=== PATIENT | female | born 1945 | race Caucasian/White ===

== ENCOUNTER → 2017-09-03 | Outpatient (CLI) | payer MEDICARE, OTHER ==
--- NOTE | 2017-09-03 14:55 | MM ---
Reason for exam: clinical finding. Baseline mammogram. Physical Findings: Nurse did not find any significant physical abnormalities on exam. MG 3D Diag Mammo W/Cad VINAY Bilateral CC and MLO view(s) were taken. There are scattered fibroglandular densities. There is no discrete abnormality within the breast. Vague soft tissue wound left inferior breast. Skin tag left inferior breast. These results were verbally communicated with the patient and result sheet given to the patient on 09/03/17. ASSESSMENT: Benign, BI-RAD 2 RECOMMENDATION: Routine screening mammogram of both breasts in 1 year.
== END | disposition home or self-care (01) ==
LOC: RADMAMWWP 12:49
PROVIDERS: ATTEND Family Medicine
DX: R92.8 Other abnormal and inconclusive findings on diagnostic imaging of breast (principal)
CPT/HCPCS: 77066; G0279

== ENCOUNTER 2019-10-06 12:09 | Emergency (ER) | payer MEDICARE, OTHER ==
[2019-10-06 12:21] LABS: Glucose,Whole Blood 106 mg/dL (75-99)
[2019-10-06 12:33] VITALS: RESP 18
[2019-10-06] MEDS ORDERED: LABETALOL 5 MG/ML VIAL MDV IVP STA (12:37)
--- NOTE | 2019-10-06 12:38 | ED ---
General Adult HPI - General Chief complaint: Recheck/Abnormal Lab/Rx Stated complaint: High blood pressure/abn EKG Time Seen by Provider: 10/06/19 12:17 Source: patient Mode of arrival: wheelchair Limitations: no limitations - History of Present Illness Initial comments: Dictation was produced using [employer] dictation software. please excuse any gram matical, word or spelling errors. Chief Complaint: 74-year-old female presents with lower extremity weakness and elevated blood pressure. History of Present Illness: 74-year-old female she is here today emergency department after instruction by physician to come to the emergency department. Patient has been generally weak. She is accompanied by family members. Starting yesterday morning patient has been having lower extremity weakness. It's been difficult for her to ambulate. Patient denies any numbness or tingling or paresthesias however. This morning the strength in her left lower leg improved however she still has persistent right lower extremity weakness. Patient usually walks however is not able to adduct the moment. Patient denies any history of stroke. She does have history of hypertension and mitral valve prolapse. States that her symptoms began Friday morning. Denies any history of stroke. The ROS documented in this emergency department record has been reviewed and confirmed by me. Those systems with pertinent positive or negative responses have been documented in the HPI. All other systems are other negative and/or noncontributory. PHYSICAL EXAM: General Impression: Alert and oriented x3, not in acute distress HEENT: Normocephalic atraumatic, extra-ocular movements intact, pupils equal and reactive to light bilaterally, mucous membranes moist. Cardiovascular: Heart regular rate and rhythm, S1&S2 audible, no murmurs, rubs or gallops Chest: Lungs clear to auscultation bilaterally, no rhonchi, no wheeze, no rales Abdomen: Bowel sounds present, abdomen soft, non-tender, non-distended, no organomegaly Musculoskeletal: Pulses present and equal in all extremities, no peripheral edema Motor: no focal deficits noted Neurological: CN II-XII grossly intact, no facial droop, 1+ drift to the right upper extremity, 2+ drift to the right lower extremity. Inability to stand on right leg, right lower extremity ataxia Skin: Intact with no visualized rashes Psych: Normal affect and mood ED course: 74-year-old female presents with hypertension. She is instructed by primary care physician to come to the emergency department. Upon arrival óscar wynn had strokelike symptoms. Vital signs upon arrival shows blood pressure 229 and 141, rest of vital signs within acceptable limits. Patient given NIH of 4. Patient outside the TPA window. symptoms are approximately 48 hours since onset Laboratory evaluation obtained. CBC, coag panel, metabolic panel is unremarkable. There is slight elevation of troponin 0.02. Computed tomography scan of the brain is unremarkable. Chest x-ray is nonacute. Patient given aspirin. She is reevaluated bedside complains of persistent symptoms. We do not have neurology in her hospital today. We'll transfer to [facility]. Discussed patient case with Dr. Sethi does want to accept his care. She given labetalol 4 systolic blood pressure of 229/141. EKG interpretation: Ventricular rate 71, normal sinus rhythm,. 188, QRS 90, QTC 471. No MI prolongation, no QTC prolongation, no ST or T-wave changes noted. . Overall, this EKG is unremarkable - Related Data Previous Rx's Medication Instructions Recorded Ondansetron [Zofran] 4 mg PO Q8HR PRN #15 tab 02/06/14 Allergies Allergy/AdvReac Type Severity Reaction Status Date / Time Sulfa (Sulfonamide Allergy Anaphylaxis Verified 10/06/19 12:14 Antibiotics) Review of Systems ROS Statement: Those systems with pertinent positive or pertinent negative responses have been documented in the HPI. ROS Other: All systems not noted in ROS Statement are negative. Past Medical History Past Medical History: Hypertension, Mitral Valve Prolapse (MVP) History of Any Multi-Drug Resistant Organisms: None Reported Past Surgical History: Cholecystectomy, Hysterectomy Past Psychological History: No Psychological Hx Reported Smoking Status: Never smoker Past Alcohol Use History: None Reported Past Drug Use History: None Reported General Exam Limitations: no limitations Course Vital Signs 10/06/19 10/06/19 10/06/19 12:11 12:31 13:43 Temperature 97.8 F 98.4 F Pulse Rate 76 70 64 Respiratory 20 18 Rate Blood Pressure 215/117 229/141 191/104 O2 Sat by Pulse 96 96 Oximetry Medical Decision Making - Lab Data Result diagrams: 10/06/19 12:28 10/06/19 12:28 Lab Results 10/06/19 10/06/19 10/06/19 Range/Units 12:20 12:28 12:28 WBC 8.6 (3.8-10.6) k/uL RBC 5.02 (3.80-5.40) m/uL Hgb 15.6 (11.4-16.0) gm/dL Hct 46.6 H (34.0-46.0) % MCV 93.0 (80.0-100.0) fL MCH 31.0 (25.0-35.0) pg MCHC 33.4 (31.0-37.0) g/dL RDW 12.0 (11.5-15.5) % Plt Count 326 (150-450) k/uL Neutrophils % 60 % Lymphocytes % 30 % Monocytes % 5 % Eosinophils % 2 % Basophils % 1 % Neutrophils # 5.2 (1.3-7.7) k/uL Lymphocytes # 2.5 (1.0-4.8) k/uL Monocytes # 0.4 (0-1.0) k/uL Eosinophils # 0.2 (0-0.7) k/uL Basophils # 0.1 (0-0.2) k/uL PT (9.0-12.0) sec INR (<1.2) APTT (22.0-30.0) sec Sodium 140 (137-145) mmol/L Potassium 3.4 L (3.5-5.1) mmol/L Chloride 104 (98-107) mmol/L Carbon Dioxide 30 (22-30) mmol/L Anion Gap 6 mmol/L BUN 14 (7-17) mg/dL Creatinine 0.72 (0.52-1.04) mg/dL Est GFR (CKD-EPI)AfAm >90 (>60 ml/min/1.73 sqM) Est GFR (CKD-EPI)NonAf 85 (>60 ml/min/1.73 sqM) Glucose 108 H (74-99) mg/dL POC Glucose (mg/dL) 106 H (75-99) mg/dL POC Glu Asbestos Abatement Technician ID Eleni Price Calcium 9.4 (8.4-10.2) mg/dL Troponin I (0.000-0.034) ng/mL 10/06/19 10/06/19 Range/Units 12:28 12:28 WBC (3.8-10.6) k/uL RBC (3.80-5.40) m/uL Hgb (11.4-16.0) gm/dL Hct (34.0-46.0) % MCV (80.0-100.0) fL MCH (25.0-35.0) pg MCHC (31.0-37.0) g/dL RDW (11.5-15.5) % Plt Count (150-450) k/uL Neutrophils % % Lymphocytes % % Monocytes % % Eosinophils % % Basophils % % Neutrophils # (1.3-7.7) k/uL Lymphocytes # (1.0-4.8) k/uL Monocytes # (0-1.0) k/uL Eosinophils # (0-0.7) k/uL Basophils # (0-0.2) k/uL PT 9.9 (9.0-12.0) sec INR 0.9 (<1.2) APTT 22.9 (22.0-30.0) sec Sodium (137-145) mmol/L Potassium (3.5-5.1) mmol/L Chloride (98-107) mmol/L Carbon Dioxide (22-30) mmol/L Anion Gap mmol/L BUN (7-17) mg/dL Creatinine (0.52-1.04) mg/dL Est GFR (CKD-EPI)AfAm (>60 ml/min/1.73 sqM) Est GFR (CKD-EPI)NonAf (>60 ml/min/1.73 sqM) Glucose (74-99) mg/dL POC Glucose (mg/dL) (75-99) mg/dL POC Glu Asbestos Abatement Technician ID Calcium (8.4-10.2) mg/dL Troponin I 0.020 (0.000-0.034) ng/mL Disposition Clinical Impression: Cerebrovascular accident (CVA) Disposition: OTHER INSTITUTION NOT DEFINED Condition: Fair Referrals: Sherry Young DO [Primary Care Provider] - 1-2 days Time of Disposition: 13:48 - Out of Hospital Transfer - Req. Specs Out of Hospital Transfer - Requested Specifics: Other Emergency Center ([facility]
[2019-10-06 12:41] LABS: Basophils # (A) 0.1 k/uL (0-0.2); Basophils % (A) 1 %; Eosinophils # (A) 0.2 k/uL (0-0.7); Eosinophils % (A) 2 %; HCT 46.6 % (34.0-46.0); HGB 15.6 gm/dL (11.4-16.0); Lymphocytes # (A) 2.5 k/uL (1.0-4.8); Lymphocytes % (A) 30 %; MCHC 33.4 g/dL (31.0-37.0); Mean Platelet Volume 8.5; Monocytes # (A) 0.4 k/uL (0-1.0); Monocytes % (A) 5 %; Neutrophils # (A) 5.2 k/uL (1.3-7.7); Neutrophils % (A) 60 %; Platelet Count 326 k/uL (150-450); RBC 5.02 m/uL (3.80-5.40); WBC 8.6 k/uL (3.8-10.6)
[2019-10-06 12:49] LABS: INR 0.9 (<1.2); Partial Thromboplastin Time 22.9 sec (22.0-30.0); Prothrombin Time 9.9 sec (9.0-12.0)
[2019-10-06 12:51] LABS: African American GFR (CKD) >90 (>60 ml/min/1.73 sqM); Anion Gap 6 mmol/L; Blood Urea Nitrogen 14 mg/dL (7-17); Calcium 9.4 mg/dL (8.4-10.2); Carbon Dioxide 30 mmol/L (22-30); Chloride 104 mmol/L (98-107); Glucose 108 mg/dL (74-99); Non-African American GFR(CKD) 85 (>60 ml/min/1.73 sqM); Potassium 3.4 mmol/L (3.5-5.1); Sodium 140 mmol/L (137-145)
--- NOTE | 2019-10-06 12:58 | XR ---
EXAMINATION TYPE: XR chest 2V DATE OF EXAM: 10/06/2019 COMPARISON: NONE HISTORY: Shortness of breath TECHNIQUE: Frontal and lateral views of the chest are obtained. FINDINGS: Scattered senescent parenchymal changes noted. Hyperinflation compatible with COPD. No evidence for infiltrate. No evidence for atelectasis. Heart size is stable. Mediastinal structures are stable and grossly unremarkable. No evidence for hilar prominence. Degenerative changes dorsal spine. IMPRESSION: 1. No evidence for acute pulmonary disease.
--- NOTE | 2019-10-06 13:02 | CT ---
EXAMINATION TYPE: CT brain wo con DATE OF EXAM: 10/06/2019 COMPARISON: None INDICATION: High blood pressure, right sided weakness DLP: 1025.4 mGycm, Automated exposure control for dose reduction was used. CONTRAST: None CT of the brain is performed utilizing 3 mm thick sections through the posterior fossa and 3 mm thick sections through the remaining calvarium. Study is performed within 24 hours of arrival to the hosp ital. No abnormal hyperdensity is present to suggest an acute intracranial hemorrhage. No mass lesion is evident. No acute infarcts are evident. Ventricles and sulci are prominent for the patient age. Lateral ventricles are prominent. No tempora l horn dilatation is evident. Third ventricle somewhat prominent. Findings can be related to atrophy. Paranasal sinuses and mastoid air cells within the [id number] are clear. IMPRESSIONS: 1. Age-related atrophy. 2. No acute intracranial process radiographically apparent.
[2019-10-06] MEDS ORDERED: ASPIRIN 81 MG PO STA (13:27)
[2019-10-06 14:06] VITALS: BP 211/118; PULSE 65; TEMP 98.2
== END 2019-10-06 14:15 | disposition other institution (70) ==
LOC: EC 12:09
DX: I63.9 Cerebral infarction, unspecified (principal); I34.1 Nonrheumatic mitral (valve) prolapse; I10 Essential (primary) hypertension; R53.1 Weakness; R29.704 NIHSS score 4; R79.89 Other specified abnormal findings of blood chemistry; Z88.2 Allergy status to sulfonamides
CPT/HCPCS: 36415; 70450; 71046; 80048; 84484; 85025; 85610; 85730; 93005; 96374; 99285

== ENCOUNTER 2020-08-21 09:37 | Inpatient (IN) | payer MEDICARE, OTHER ==
[2020-08-21] MEDS ORDERED: SODIUM CHLORIDE 0.9% 1,000 ML IV STA (09:55)
[2020-08-21] MEDS ORDERED: ONDANSETRON 4 MG/2 ML VIAL IVP STA (09:55)
[2020-08-21] MEDS ORDERED: MORPHINE SULFATE 2 MG/ML SYRINGE IV STA (09:55)
--- NOTE | 2020-08-21 10:00 | ED ---
General Adult HPI - General Chief complaint: GI Bleed Stated complaint: NVD, blood in stool Time Seen by Provider: 08/21/20 09:48 Source: patient, RN notes reviewed Mode of arrival: wheelchair Limitations: no limitations - History of Present Illness Initial comments: Patient 75-year-old female presented to the emergency room today with chief complaint of symptoms of nausea, vomiting, diarrhea that started yesterday. She does admit that today after an episode of diarrhea she was point. some blood on the toilet paper also extensive the toilet. She states bright red color. She does admit that she is on aspirin also takes Plavix. Patient does admit to some cramping in the abdomen, and going. She states that 4 days ago she had a fall as well. She states that her leg gave out she fell backwards and her head. She did not lose conscious. She does admit that she's had some headaches. Denies any other complaints or symptoms currently. Patient denies any recent fever, chills, shortness of breath, chest pain, back pain, headaches or visual changes, or any other complaints. - Related Data Previous Rx's Medication Instructions Recorded Ondansetron [Zofran] 4 mg PO Q8HR PRN #15 tab 02/06/14 Allergies Allergy/AdvReac Type Severity Reaction Status Date / Time Sulfa (Sulfonamide Allergy Anaphylaxis Verified 08/21/20 09:47 Antibiotics) Review of Systems ROS Statement: Those systems with pertinent positive or pertinent negative responses have been documented in the HPI. ROS Other: All systems not noted in ROS Statement are negative. Past Medical History Past Medical History: CVA/TIA, Hyperlipidemia, Hypertension, Mitral Valve Prolapse (MVP) History of Any Multi-Drug Resistant Organisms: None Reported Past Surgical History: Cholecystectomy, Hysterectomy, Orthopedic Surgery Past Psychological History: No Psychological Hx Reported Smoking Status: Never smoker Past Alcohol Use History: None Reported Past Drug Use History: None Reported General Exam - General Exam Comments Initial Comments: General: The patient is awake and alert, in no distress, and does not appear acutely ill. Eye: extra-ocular movements are intact. No nystagmus. There is normal conjunctiva bilaterally. No signs of icterus. Ears, nose, mouth and throat: There are moist mucous membranes and no oral lesions. Neck: The neck is supple, there is no tenderness or JVD. Cardiovascular: There is a regular rate and rhythm. No murmur, rub or gallop is appreciated. Respiratory: Lungs are clear to auscultation, respirations are non-labored, breath sounds are equal. No wheezes, stridor, rales, or rhonchi. Gastrointestinal: Normal exam. Mild tenderness throughout the abdomen. No rebound, guarding or CVA tenderness. Musculoskeletal: Normal ROM, no tenderness. Strength 5/5. Sensation intact. Neurological: A&O x 3. CN II-XII intact, There are no obvious motor or sensory deficits. Coordination appears grossly intact. Speech is normal. Skin: Skin is warm and dry and no rashes or lesions are noted. Psychiatric: Cooperative, appropriate mood & affect, normal judgment. Limitations: no limitations Course Vital Signs 08/21/20 08/21/20 08/21/20 09:43 10:30 11:00 Temperature 98.8 F Pulse Rate 86 72 78 Respiratory 20 12 19 Rate Blood Pressure 139/100 139/93 149/91 O2 Sat by Pulse 96 96 96 Oximetry 08/21/20 08/21/20 11:30 11:50 Temperature Pulse Rate 73 78 Respiratory 17 16 Rate Blood Pressure 170/93 153/91 O2 Sat by Pulse 94 L Oximetry EKG Findings - EKG Comments: EKG Findings:: EKG performed at 1001: Shows normal sinus rhythm at [address] interval 192. QRS 94. QT/QTc 416/479. No acute change. Medical Decision Making - Medical Decision Making Patient's labs been reviewed are shortly 2000 white count. Patient's hemoglobin stable. She does not that she saw some blood in the stool this morning. Patient given Protonix in the emergency room also given doses of antibiotics of Rocephin, Flagyl to cover for infectious colitis as seen on patient's CT. There is concern for possible mass also visualized. Patient will be admitted with consult to general surgery. - Lab Data Result diagrams: 08/21/20 10:05 08/21/20 10:05 Lab Results 08/21/20 08/21/20 08/21/20 Range/Units 10:05 10:05 10:05 WBC 18.9 H (3.8-10.6) k/uL RBC 4.99 (3.80-5.40) m/uL Hgb 15.4 (11.4-16.0) gm/dL Hct 45.4 (34.0-46.0) % MCV 91.1 (80.0-100.0) fL MCH 30.9 (25.0-35.0) pg MCHC 33.9 (31.0-37.0) g/dL RDW 11.8 (11.5-15.5) % Plt Count 338 (150-450) k/uL MPV 7.7 Neutrophils % 84 % Lymphocytes % 10 % Monocytes % 4 % Eosinophils % 0 % Basophils % 1 % Neutrophils # 15.9 H (1.3-7.7) k/uL Lymphocytes # 1.9 (1.0-4.8) k/uL Monocytes # 0.7 (0-1.0) k/uL Eosinophils # 0.0 (0-0.7) k/uL Basophils # 0.1 (0-0.2) k/uL PT 10.2 (9.0-12.0) sec INR 0.9 (<1.2) APTT 21.5 L (22.0-30.0) sec Sodium 139 (137-145) mmol/L Potassium 3.5 (3.5-5.1) mmol/L Chloride 105 (98-107) mmol/L Carbon Dioxide 25 (22-30) mmol/L Anion Gap 9 mmol/L BUN 14 (7-17) mg/dL Creatinine 0.77 (0.52-1.04) mg/dL Est GFR (CKD-EPI)AfAm 89 (>60 ml/min/1.73 sqM) Est GFR (CKD-EPI)NonAf 77 (>60 ml/min/1.73 sqM) Glucose 135 H (74-99) mg/dL Calcium 9.9 (8.4-10.2) mg/dL Total Bilirubin 0.9 (0.2-1.3) mg/dL AST 20 (14-36) U/L ALT 12 (4-34) U/L Alkaline Phosphatase 139 H (38-126) U/L Troponin I (0.000-0.034) ng/mL Total Protein 7.0 (6.3-8.2) g/dL Albumin 3.9 (3.5-5.0) g/dL 08/21/20 Range/Units 10:05 WBC (3.8-10.6) k/uL RBC (3.80-5.40) m/uL Hgb (11.4-16.0) gm/dL Hct (34.0-46.0) % MCV (80.0-100.0) fL MCH (25.0-35.0) pg MCHC (31.0-37.0) g/dL RDW (11.5-15.5) % Plt Count (150-450) k/uL MPV Neutrophils % % Lymphocytes % % Monocytes % % Eosinophils % % Basophils % % Neutrophils # (1.3-7.7) k/uL Lymphocytes # (1.0-4.8) k/uL Monocytes # (0-1.0) k/uL Eosinophils # (0-0.7) k/uL Basophils # (0-0.2) k/uL PT (9.0-12.0) sec INR (<1.2) APTT (22.0-30.0) sec Sodium (137-145) mmol/L Potassium (3.5-5.1) mmol/L Chloride (98-107) mmol/L Carbon Dioxide (22-30) mmol/L Anion Gap mmol/L BUN (7-17) mg/dL Creatinine (0.52-1.04) mg/dL Est GFR (CKD-EPI)AfAm (>60 ml/min/1.73 sqM) Est GFR (CKD-EPI)NonAf (>60 ml/min/1.73 sqM) Glucose (74-99) mg/dL Calcium (8.4-10.2) mg/dL Total Bilirubin (0.2-1.3) mg/dL AST (14-36) U/L ALT (4-34) U/L Alkaline Phosphatase (38-126) U/L Troponin I 0.012 (0.000-0.034) ng/mL Total Protein (6.3-8.2) g/dL Albumin (3.5-5.0) g/dL Disposition Clinical Impression: Infectious colitis, Hematochezia Disposition: ADMITTED IP TO THIS [facility] Condition: Stable Is patient prescribed a controlled substance at d/c from ED?: No Referrals: Sherry Young DO [Primary Care Provider] - 1-2 days Time of Disposition: 11:53
[2020-08-21 10:34] LABS: Basophils # (A) 0.1 k/uL (0-0.2); Basophils % (A) 1 %; Eosinophils % (A) 0 %; HCT 45.4 % (34.0-46.0); HGB 15.4 gm/dL (11.4-16.0); Lymphocytes # (A) 1.9 k/uL (1.0-4.8); Lymphocytes % (A) 10 %; MCH 30.9 pg (25.0-35.0); MCHC 33.9 g/dL (31.0-37.0); MCV 91.1 fL (80.0-100.0); Mean Platelet Volume 7.7; Monocytes # (A) 0.7 k/uL (0-1.0); Monocytes % (A) 4 %; Neutrophils # (A) 15.9 k/uL (1.3-7.7); Neutrophils % (A) 84 %; Platelet Count 338 k/uL (150-450); RBC 4.99 m/uL (3.80-5.40); RDW 11.8 % (11.5-15.5); WBC 18.9 k/uL (3.8-10.6)
[2020-08-21 10:42] LABS: Albumin 3.9 g/dL (3.5-5.0); Calcium 9.9 mg/dL (8.4-10.2); Potassium 3.5 mmol/L (3.5-5.1); Total Bilirubin 0.9 mg/dL (0.2-1.3)
[2020-08-21 10:50] LABS: INR 0.9 (<1.2); Prothrombin Time 10.2 sec (9.0-12.0)
[2020-08-21 10:56] LABS: Partial Thromboplastin Time 21.5 sec (22.0-30.0)
--- NOTE | 2020-08-21 11:07 | CT ---
EXAMINATION TYPE: CT brain wo con DATE OF EXAM: 08/21/2020 HISTORY: fall injury with headache. CT DLP: 1098.4 mGycm. Automated Exposure Control for Dose Reduction was Utilized. TECHNIQUE: CT scan of the head is performed without contrast. COMPARISON: CT brain October 06, 2019. FINDINGS: There is no acute intracranial hemorrhage or midline shift identified. There is diffuse v entricular and sulcal prominence consistent with diffuse age-related cerebral atrophy. There is low- attenuation in the periventricular white matter consistent with chronic small vessel ischemic change. The globes are intact and the visualized sinuses are clear. The calvarium is intact. IMPRESSION: No acute intracranial hemorrhage or midline shift. There is [id number] diffuse ag e-related cerebral atrophy and mild chronic small vessel ischemic change redemonstrated. No significa nt change from prior CT.
--- NOTE | 2020-08-21 11:19 | CT ---
EXAMINATION TYPE: CT abdomen pelvis w con DATE OF EXAM: 08/21/2020 HISTORY: Abdominal pain not further specified. Fall injury. CT DLP: 1211.7mGycm Automated Exposure Control for Dose Reduction was Utilized. CONTRAST: CT scan of the abdomen and pelvis is performed with IV Contrast, patient injected with 80 mL of Isovu e 300. COMPARISON: None. FINDINGS: LUNG BASES: There is cardiomegaly. Mild bibasilar linear scarring and/or atelectasis LIVER/GB: Cholecystectomy clips. PANCREAS: No significant abnormality is seen. SPLEEN: No significant abnormality is seen. ADRENALS: No significant abnormality is seen. KIDNEYS: Some cortical thinning in both kidneys. Symmetric cortical medullary uptake and excretion wi thout hydronephrosis seen bilaterally. Occasional simple appearing subcentimeter thin-walled cysts bi laterally. Suspicious exophytic ball-shaped 2.3 x 2.1 cm hyperdense lesion upper pole right kidney on axial image 24. BOWEL: Fluid-filled nondilated small bowel loops in the lower abdomen and pelvis. Suboptimal evaluati on without enteric contrast. Mild wall thickening involving the terminal ileum and cecum. Focal moder ate wall thickening mid to distal transverse colon coronal image 39 over roughly 2.5 cm segment could reflect spasm, underlying mass not excluded. There is moderate wall thickening beginning at the sple armin flexure with more severe wall thickening in the distal left colon, mild to moderate wall thickeni ng contiguously extends into the sigmoid rectal colon. Mild to moderate ill-defined fluid and fat str anding in the left lower quadrant and upper pelvis involving proximal sigmoid colon and the distal 1/ 2-2/3 of the left colon. No adjacent free air. UTERUS/ADNEXA: Uterus is surgically absent or markedly atrophic. Adjacent scattered tiny pelvic phleb oliths. Asymmetric prominent heterogeneous right pericervical/perianal remnant or mass axial image 97 measuring 3.0 x 2.5 cm. LYMPH NODES: No greater than 1cm abdominal or pelvic lymph nodes are appreciated. OSSEOUS STRUCTURES: Underlying levoconvex scoliosis centered L4 level. Moderate to severe disc space narrowing with vacuum disc phenomenon right L4-L5 level with right-sided lateral spurring OTHER: No moderate mixed plaque in the ectatic abdominal aorta. No greater than 3.0 cm aneurysm. IMPRESSION: 1. Mild to moderate uncomplicated acute left-sided colitis greatest involving the distal one half lef t and proximal sigmoid colon. Additional areas of mild enterocolitis is not excluded. Differential in cludes infectious and/or inflammatory etiologies. Follow-up colonoscopy after treatment is advised to rule out neoplasm with particular attention to the mid to distal transverse colon at site of focal n arrowing. 2. Abnormal periRectal/perianal 3.0 cm heterogeneous solid mass worrisome for malignancy. 3. Abnormal exophytic 2.3 cm hyperdense lesion upper pole right kidney could reflect a proteinaceous cyst but favor a solid mass or neoplasm. Follow-up advised.
[2020-08-21] MEDS ORDERED: ONDANSETRON 4 MG/2 ML VIAL IVP PRN (11:47)
[2020-08-21] MEDS ORDERED: NALOXONE 0.4 MG/ML 1 ML VIAL IV PRN (11:47)
[2020-08-21] MEDS ORDERED: metroNIDAZOLE-NS PMX 500 MG in SALINE 1 100ML.BAG IVPB STA (11:51)
[2020-08-21] MEDS ORDERED: cefTRIAXone IN SWFI 1,000 MG/10 ML SYRINGE IVP STA (11:51)
[2020-08-21] MEDS: SODIUM CHLORIDE 0.9% 1,000 ML IV SCH ×2 (12:36→19:05)
[2020-08-21] MEDS: amLODIPine 10 MG TAB PO SCH (14:09)
[2020-08-21] MEDS: PRAVASTATIN SODIUM 80 MG TAB PO SCH (14:09)
[2020-08-21] MEDS: carvediloL 6.25 MG TAB PO SCH (15:05)
[2020-08-21] MEDS: PANTOPRAZOLE 40 MG/10 ML VIAL IVP SCH (15:05)
[2020-08-21 15:36] LABS: Appearance,Urine Clear (Clear); Bilirubin,Urine Negative (Negative); Blood,Urine Small (Negative); Color,Urine Yellow; Glucose,Urine (UA) Negative (Negative); Ketones,Urine 1+ (Negative); Leukocyte Esterase,Urine Negative (Negative); Mucus,Urine Occasional /hpf; Nitrite,Urine Negative (Negative); PH, Urine 5.5 (5.0-8.0); Protein,Urine Trace (Negative); RBC,Urine 1 /hpf (0-5); Squamous Epithelial Cell,Urine 4 /hpf (0-4); Urobilinogen,Urine <2.0 mg/dL (<2.0); WBC,Urine 2 /hpf (0-5)
[2020-08-21 16:01] LABS: Specific Gravity,Urine >1.050 (1.001-1.035)
--- NOTE | 2020-08-21 16:01 | P.GSCN ---
History of Present Illness Consult date: 08/21/20 History of present illness: CHIEF COMPLAINT: Abdominal pain HISTORY OF PRESENT ILLNESS: A 75-year-old female with a known history of CVA, hypertension, valve prolapse, cholecystectomy and history. She presents to emergency room with complaints of crampy mid abdominal pain with vomiting and diarrhea that started yesterday. Patient reports having multiple loose watery brown stools. She didn't know when she wiped there was blood on the tissue paper. She does take aspirin and Plavix. She's had decrease in appetite. And has felt more weak. She came in for further evaluation and treatment. She had a computed tomography scan of the abdomen and pelvis that showed [id number] uncomplicated acute left-sided colitis rate is involving the distal one half and proximal sigmoid colon. Additional areas of mild enterocolitis not excluded. Differential includes infectious and/or inflammatory etiologies. Follow-up colonoscopy after treatment is advised rule out neoplasm with particular attention to the mid to distal transverse colon at site of. Abnormal perirectal/perianal 3.0 cm heterogenous solid mass worrisome for malignancy. Abnormal Exophtic 2.3 cm hyperdense lesion upper pole right kidney could reflect proteinaceous cyst but favor solid mass or neoplasm. Follow-up advised. Patient denies any prior history of colonoscopy. Denies any family history of colon cancer. She denies any fever chills or sweats. Denies any cardiac history. PAST MEDICAL HISTORY: See list. PAST SURGICAL HISTORY: See list. MEDICATIONS: See list. ALLERGIES: See list. SOCIAL HISTORY: No illicit drug use. REVIEW OF SYSTEMS: CONSTITUTIONAL: Denies fever or chills. HEENT: Denies blurred vision, vision changes, or eye pain. Denies hemoptysis CARDIOVASCULAR: Denies chest pain or pressure. RESPIRATORY: No shortness of breath. GASTROINTESTINAL: See HPI for pertinent findings HEMATOLOGIC: Denies bleeding disorders. GENITOURINARY: Denies any blood in urine or increased urinary frequency. SKIN: Denies pruitis. Denies rash. PHYSICAL EXAM: VITAL SIGNS: Reviewed GENERAL: Well-developed in no acute distress. HEENT: No sclera icterus. Extraocular movements grossly intact. Moist buccal mucosa. Head is atraumatic, normocephalic. No nasal drainage. ABDOMEN: Soft. Nondistended. Tenderness to palpation mid abdomen NEUROLOGIC: Alert and oriented. Cranial nerves II through XII grossly intact. LABORATORY DATA: WBC 18.9 hemoglobin 15.4 creatinine 0.77 LFTs normal alk phos 139 troponin negative IMAGING: computed tomography scan of the abdomen and pelvis that showed [id number] uncomplicated acute left-sided colitis rate is involving the distal one half and proximal sigmoid colon. Additional areas of mild enterocolitis not excluded. Differential includes infectious and/or inflammatory etiologies. Follow-up colonoscopy after treatment is advised rule out neoplasm with particular attention to the mid to distal transverse colon at site of. Abnormal perirectal/perianal 3.0 cm heterogenous solid mass worrisome for malignancy. Abnormal Exophtic 2.3 cm hyperdense lesion upper pole right kidney could reflect proteinaceous cyst but favor solid mass or neoplasm. Follow-up advised. ASSESSMENT: 1. Abdominal pain 2. Colitis with computed tomography scan showing [id number] uncomplicated acute left-sided colitis involving the distal left colon and proximal sigmoid colon. Differential includes infectious and/or inflammatory etiologies. 3. Perirectal 3.0 cm heterogenous solid mass noted on CAT scan worrisome for malignancy PLAN: -Continue antibiotics -Plan for colonoscopy on 08/23/[address] Huang -Start GoLYTELY prep tomorrow -Continue IV fluids -Follow up on labs in a.m. Thank you for this consultation Physician Manager Flight Operations note has been reviewed by physician. Signing provider agrees with the documented findings, assessment, and plan of care. Past Medical History Past Medical History: CVA/TIA, Hyperlipidemia, Hypertension, Mitral Valve Prolapse (MVP) Additional Past Medical History / Comment(s): IBS History of Any Multi-Drug Resistant Organisms: None Reported Past Surgical History: Cholecystectomy, Hysterectomy, Orthopedic Surgery Past Psychological History: No Psychological Hx Reported Smoking Status: Never smoker Past Alcohol Use History: None Reported Past Drug Use History: None Reported Medications and Allergies Home Medications Medication Instructions Recorded Confirmed Type Aspirin EC [Ecotrin Low Dose] 81 mg PO DAILY 08/21/20 08/21/20 History Clopidogrel Bisulfate [Plavix] 75 mg PO DAILY 08/21/20 08/21/20 History Ergocalciferol [Vitamin D2 50,000 unit PO TH 08/21/20 08/21/20 History (DRISDOL)] Furosemide [Lasix] 20 mg PO DAILY 08/21/20 08/21/20 History Potassium Chloride [Klor-Con 10] 10 meq PO BID 08/21/20 08/21/20 History Pravastatin Sodium [Pravachol] 80 mg PO DAILY 08/21/20 08/21/20 History amLODIPine [Norvasc] 10 mg PO DAILY 08/21/20 08/21/20 History carvediloL [Coreg] 6.25 mg PO BID 08/21/20 08/21/20 History Allergies Allergy/AdvReac Type Severity Reaction Status Date / Time Sulfa (Sulfonamide Allergy Anaphylaxis Verified 08/21/20 12:08 Antibiotics) Surgical - Exam Vital Signs Temp Pulse Resp BP Pulse Ox 98.8 F 86 20 139/100 96 08/21/20 09:43 08/21/20 09:43 08/21/20 09:43 08/21/20 09:43 08/21/20 09:43 Results - Labs 08/21/20 10:05 08/21/20 10:05 Abnormal Lab Results - Last 24 Hours (Table) 08/21/20 08/21/20 08/21/20 Range/Units 10:05 10:05 10:05 WBC 18.9 H (3.8-10.6) k/uL Neutrophils # 15.9 H (1.3-7.7) k/uL APTT 21.5 L (22.0-30.0) sec Glucose 135 H (74-99) mg/dL Alkaline Phosphatase 139 H (38-126) U/L Diabetes panel 08/21/20 Range/Units 10:05 Sodium 139 (137-145) mmol/L Potassium 3.5 (3.5-5.1) mmol/L Chloride 105 (98-107) mmol/L Carbon Dioxide 25 (22-30) mmol/L BUN 14 (7-17) mg/dL Creatinine 0.77 (0.52-1.04) mg/dL Glucose 135 H (74-99) mg/dL Calcium 9.9 (8.4-10.2) mg/dL AST 20 (14-36) U/L ALT 12 (4-34) U/L Alkaline Phosphatase 139 H (38-126) U/L Total Protein 7.0 (6.3-8.2) g/dL Albumin 3.9 (3.5-5.0) g/dL Calcium panel 08/21/20 Range/Units 10:05 Calcium 9.9 (8.4-10.2) mg/dL Albumin 3.9 (3.5-5.0) g/dL Pituitary panel 08/21/20 Range/Units 10:05 Sodium 139 (137-145) mmol/L Potassium 3.5 (3.5-5.1) mmol/L Chloride 105 (98-107) mmol/L Carbon Dioxide 25 (22-30) mmol/L BUN 14 (7-17) mg/dL Creatinine 0.77 (0.52-1.04) mg/dL Glucose 135 H (74-99) mg/dL Calcium 9.9 (8.4-10.2) mg/dL Adrenal panel 08/21/20 Range/Units 10:05 Sodium 139 (137-145) mmol/L Potassium 3.5 (3.5-5.1) mmol/L Chloride 105 (98-107) mmol/L Carbon Dioxide 25 (22-30) mmol/L BUN 14 (7-17) mg/dL Creatinine 0.77 (0.52-1.04) mg/dL Glucose 135 H (74-99) mg/dL Calcium 9.9 (8.4-10.2) mg/dL Total Bilirubin 0.9 (0.2-1.3) mg/dL AST 20 (14-36) U/L ALT 12 (4-34) U/L Alkaline Phosphatase 139 H (38-126) U/L Total Protein 7.0 (6.3-8.2) g/dL Albumin 3.9 (3.5-5.0) g/dL
[2020-08-21] MEDS: POTASSIUM CHLORIDE ER 10 MEQ TAB.ER.PRT PO SCH (19:04)
[2020-08-21] MEDS: metroNIDAZOLE-NS PMX 500 MG in SALINE 1 100ML.BAG IVPB SCH (19:05)
[2020-08-22] MEDS: metroNIDAZOLE-NS PMX 500 MG in SALINE 1 100ML.BAG IVPB SCH ×3 (04:45→21:59)
[2020-08-22 06:21] LABS: Basophils % (A) 0 %; Eosinophils # (A) 0.1 k/uL (0-0.7); Eosinophils % (A) 1 %; HCT 37.1 % (34.0-46.0); HGB 12.7 gm/dL (11.4-16.0); Lymphocytes # (A) 2.2 k/uL (1.0-4.8); Lymphocytes % (A) 19 %; MCH 31.3 pg (25.0-35.0); MCHC 34.1 g/dL (31.0-37.0); MCV 91.7 fL (80.0-100.0); Mean Platelet Volume 7.8; Monocytes # (A) 0.6 k/uL (0-1.0); Monocytes % (A) 5 %; Neutrophils # (A) 8.2 k/uL (1.3-7.7); Neutrophils % (A) 73 %; Platelet Count 227 k/uL (150-450); RBC 4.05 m/uL (3.80-5.40); RDW 11.9 % (11.5-15.5); WBC 11.3 k/uL (3.8-10.6)
[2020-08-22] MEDS: PANTOPRAZOLE 40 MG/10 ML VIAL IVP SCH (08:51)
[2020-08-22] MEDS: amLODIPine 10 MG TAB PO SCH (08:52)
[2020-08-22] MEDS: carvediloL 6.25 MG TAB PO SCH ×2 (08:52→17:21)
[2020-08-22] MEDS: POTASSIUM CHLORIDE ER 10 MEQ TAB.ER.PRT PO SCH ×2 (08:52→21:59)
[2020-08-22] MEDS: PRAVASTATIN SODIUM 80 MG TAB PO SCH (08:52)
[2020-08-22] MEDS: SODIUM CHLORIDE 0.9% 1,000 ML IV SCH ×2 (08:55→19:18)
[2020-08-22] MEDS ORDERED: PEG 3350-NA SULF,BICARB,CL/KCL 4,000 ML BOTTLE PO ONE (09:00)
[2020-08-22 10:09] LABS: African American GFR (CKD) 104.8 (60.0-200.0); Anion Gap 3.3 mmol/L (4.00-12.00); BUN/Creat Ratio 13.33 Ratio (12.00-20.00); Calcium 8.2 mg/dL (8.7-10.3); Carbon Dioxide 27.7 mmol/L (21.6-31.8); Non-African American GFR(CKD) 90.4 (60.0-200.0); Potassium 3.1 mmol/L (3.5-5.5)
[2020-08-22] MEDS ORDERED: POTASSIUM CHLORIDE ER 20 MEQ TAB.ER PO STA (11:38)
--- NOTE | 2020-08-22 11:48 | P.PN ---
Subjective Progress Note Date: 08/22/20 CHIEF COMPLAINT: Abdominal pain HISTORY OF PRESENT ILLNESS: Patient is being followed for her colitis and perirectal mass noted on CAT scan. She reports improvement in her abdominal pain. She's had no further episodes of diarrhea or vomiting. Patient is declining to have a colonoscopy completed. She is tolerating a liquid diet. Afebrile. WBC 11.3 hemoglobin 12.7 potassium is 3.1 and creatinine 0.6 PHYSICAL EXAM: VITAL SIGNS: Reviewed. GENERAL: Well-developed in no acute distress. HEENT: No sclera icterus. Extraocular movements grossly intact. Moist buccal mucosa. Head is atraumatic, normocephalic. ABDOMEN: Soft. Nondistended. Minimal tenderness with palpation of the left side of the abdomen. Less tender than yesterday NEUROLOGIC: Alert and oriented. Cranial nerves II through XII grossly intact. ASSESSMENT: 1. Abdominal pain 2. Colitis of the distal left colon and proximal sigmoid colon is improving 3. Perirectal mass 4. Hypokalemia patient receiving supplement PLAN: -Advance diet to full liquids and then as tolerated -Patient has refused colonoscopy -Continue supportive care -Continue antibiotics Physician Dial Marker note has been reviewed by physician. Signing provider agrees with the documented findings, assessment, and plan of care. Objective - Vital Signs Vital signs: Vital Signs Temp 98.5 F 08/22/20 07:37 Pulse 67 08/22/20 07:37 Resp 16 08/22/20 07:37 BP 128/71 08/22/20 07:37 Pulse Ox 94 L 08/22/20 07:37 Intake & Output 08/21/20 08/22/20 08/22/20 18:59 06:59 18:59 Weight 78.018 kg Other: Voiding Method Toilet Toilet # Voids 1 2 - Labs CBC & Chem 7: 08/22/20 06:06 08/22/20 06:06 Labs: Abnormal Lab Results - Last 24 Hours (Table) 08/21/20 08/22/20 08/22/20 Range/Units 09:55 06:06 06:06 WBC 11.3 H (3.8-10.6) k/uL Neutrophils # 8.2 H (1.3-7.7) k/uL Potassium 3.1 L (3.5-5.5) mmol/L Anion Gap 3.30 L (4.00-12.00) mmol/L BUN 8.0 L (9.0-27.0) mg/dL Calcium 8.2 L (8.7-10.3) mg/dL Ur Specific [place] >1.050 H (1.001-1.035) Urine Protein Trace H (Negative) Urine Ketones 1+ H (Negative) Urine Blood Small H (Negative) Urine Mucus Occasional H (None) /hpf
--- NOTE | 2020-08-22 19:53 | P.HPIM ---
History of Present Illness H&P Date: 08/22/20 Chief Complaint: abdominal pain Alize Gray is a 75 yo F with PMH of CVA, valve prolapse, cholecystectomy who presented to the ED with generalized abdominal pain, vomiting and diarrhea x2 days. Patient reports having multiple loose watery brown stools and has felt more weak. She denies any previous history of diverticulitis. On presentation vitals stable, WBC 19k, CT abd/pelvis showed [id number] uncomplicated acute left-sided sigmoid colitis in addition to abnormal perirectal/perianal 3.0 cm heterogenous solid mass worrisome for malignancy. Abnormal Exophtic 2.3 cm hyperdense lesion upper pole right kidney could reflect proteinaceous cyst but favor solid mass or neoplasm. Pt denies any previous history of colonoscopy. Review of Systems All systems: negative Constitutional: Reports malaise, Reports weakness, Denies chills, Denies fever Eyes: denies blurred vision, denies pain Ears, nose, mouth and throat: Denies headache, Denies sore throat Cardiovascular: Denies chest pain, Denies shortness of breath Respiratory: Denies cough Gastrointestinal: Reports abdominal pain, Reports diarrhea, Reports nausea, Denies vomiting Genitourinary: Denies dysuria, Denies hematuria Musculoskeletal: Denies myalgias Integumentary: Denies pruritus, Denies rash Neurological: Denies numbness, Denies weakness Psychiatric: Denies anxiety, Denies depression Endocrine: Denies fatigue, Denies weight change Past Medical History Past Medical History: CVA/TIA, Hyperlipidemia, Hypertension, Mitral Valve Prolapse (MVP) Additional Past Medical History / Comment(s): IBS History of Any Multi-Drug Resistant Organisms: None Reported Past Surgical History: Cholecystectomy, Hysterectomy, Orthopedic Surgery Past Psychological History: No Psychological Hx Reported Smoking Status: Never smoker Past Alcohol Use History: None Reported Past Drug Use History: None Reported Medications and Allergies Home Medications Medication Instructions Recorded Confirmed Type Aspirin EC [Ecotrin Low Dose] 81 mg PO DAILY 08/21/20 08/21/20 History Clopidogrel Bisulfate [Plavix] 75 mg PO DAILY 08/21/20 08/21/20 History Ergocalciferol [Vitamin D2 50,000 unit PO TH 08/21/20 08/21/20 History (DRISDOL)] Furosemide [Lasix] 20 mg PO DAILY 08/21/20 08/21/20 History Potassium Chloride [Klor-Con 10] 10 meq PO BID 08/21/20 08/21/20 History Pravastatin Sodium [Pravachol] 80 mg PO DAILY 08/21/20 08/21/20 History amLODIPine [Norvasc] 10 mg PO DAILY 08/21/20 08/21/20 History carvediloL [Coreg] 6.25 mg PO BID 08/21/20 08/21/20 History Allergies Allergy/AdvReac Type Severity Reaction Status Date / Time Sulfa (Sulfonamide Allergy Anaphylaxis Verified 08/21/20 12:08 Antibiotics) Physical Exam Vitals: Vital Signs Temp Pulse Resp BP Pulse Ox 08/22/20 17:20 55 L 138/63 08/22/20 14:00 98.1 F 70 18 103/65 95 08/22/20 07:37 98.5 F 67 16 128/71 94 L 08/22/20 02:00 98.8 F 70 18 149/74 92 L 08/21/20 20:00 16 08/21/20 19:55 98.8 F 71 16 172/88 95 Intake and Output 08/22/20 08/22/20 08/22/20 06:59 14:59 22:59 Intake Total 200 200 Balance 200 200 Intake: Oral 200 Other 200 Other: # Voids 2 General: well nourished, well developed, NAD. Vitals reviewed Eyes: PERRL, EOMI, conjunctiva normal HENT: normocephalic, mucus membranes moist Neck: supple, no JVD Lungs: normal respiratory effort, no wheezes or rales CV: Regular rate and rhythm, no murmur. Peripheral pulses 2+ Abdomen: soft, minimal tenderness, bowel sounds present Lymph: no cervical or axillary LAD Skin: warm and dry. Neuro: A&Ox3, normal mood and affect Results CBC & Chem 7: 08/22/20 06:06 08/22/20 06:06 Labs: Abnormal Lab Results - Last 24 Hours (Table) 08/22/20 08/22/20 Range/Units 06:06 06:06 WBC 11.3 H (3.8-10.6) k/uL Neutrophils # 8.2 H (1.3-7.7) k/uL Potassium 3.1 L (3.5-5.5) mmol/L Anion Gap 3.30 L (4.00-12.00) mmol/L BUN 8.0 L (9.0-27.0) mg/dL Calcium 8.2 L (8.7-10.3) mg/dL Microbiology - Last 24 Hours (Table) 08/21/20 12:19 Blood Culture - Preliminary Blood No Growth after 24 hours Thrombosis Risk Factor Assmnt - Choose All That Apply Each Risk Factor Represents 2 Points: Age 61-74 years Thrombosis Risk Factor Assessment Total Risk Factor Score: 2 Thrombosis Risk Factor Assessment Level: Low Risk Assessment and Plan (1) Intestinal mass Current Visit: Yes Status: Acute Code(s): K63.89 - OTHER SPECIFIED DISEASES OF INTESTINE SNOMED Code(s): 98888407 (2) Hematochezia Current Visit: Yes Status: Acute Code(s): K92.1 - MELENA SNOMED Code(s): 488411825 (3) Infectious colitis Current Visit: Yes Status: Acute Code(s): A09 - INFECTIOUS GASTROENTERITIS AND COLITIS, UNSPECIFIED SNOMED Code(s): 94519500 (4) Essential hypertension Current Visit: Yes Status: Acute Code(s): I10 - ESSENTIAL (PRIMARY) HYPERTENSION SNOMED Code(s): 09472255 Plan: 1. Acute infectious colitis. Admit and start rocephin and flagyl. IV protonix. Pain control 2. Perirectal heterogenous mass with concern for malignancy. Consult to general surgery, recommending colonoscopy 3. Essential hypertension. Continue norvasc and coreg
[2020-08-23] MEDS: metroNIDAZOLE-NS PMX 500 MG in SALINE 1 100ML.BAG IVPB SCH ×2 (06:03→11:42)
[2020-08-23] MEDS: SODIUM CHLORIDE 0.9% 1,000 ML IV SCH ×2 (06:03→11:43)
[2020-08-23 06:14] LABS: HCT 34.4 % (34.0-46.0); Lymphocytes % (A) 22 %; MCH 32.4 pg (25.0-35.0); MCHC 34.9 g/dL (31.0-37.0); MCV 92.7 fL (80.0-100.0); Mean Platelet Volume 7.6; Monocytes % (A) 5 %; Neutrophils % (A) 68 %; Platelet Count 199 k/uL (150-450); RBC 3.71 m/uL (3.80-5.40); RDW 11.8 % (11.5-15.5); WBC 9.3 k/uL (3.8-10.6)
[2020-08-23 06:15] LABS: Basophils # (A) 0.1 k/uL (0-0.2); Basophils % (A) 1 %; Eosinophils # (A) 0.2 k/uL (0-0.7); Eosinophils % (A) 2 %; Monocytes # (A) 0.5 k/uL (0-1.0); Neutrophils # (A) 6.4 k/uL (1.3-7.7)
[2020-08-23 07:31] VITALS: RESP 18
[2020-08-23] MEDS: PRAVASTATIN SODIUM 80 MG TAB PO SCH (08:21)
[2020-08-23] MEDS: carvediloL 6.25 MG TAB PO SCH (08:21)
[2020-08-23] MEDS: amLODIPine 10 MG TAB PO SCH (08:21)
[2020-08-23] MEDS: POTASSIUM CHLORIDE ER 10 MEQ TAB.ER.PRT PO SCH (08:21)
[2020-08-23] MEDS: PANTOPRAZOLE 40 MG/10 ML VIAL IVP SCH (08:21)
[2020-08-23 10:12] LABS: African American GFR (CKD) 99.6 (60.0-200.0); BUN/Creat Ratio 8.57 Ratio (12.00-20.00); Calcium 8.3 mg/dL (8.7-10.3); Potassium 3.5 mmol/L (3.5-5.5)
[2020-08-23] MEDS ORDERED: POTASSIUM CHLORIDE ER 20 MEQ TAB.ER PO STA (11:14)
[2020-08-23] MEDS ORDERED: Magnesium Replacement Protocol 1 EACH MISC MISCELLANE PRN (11:15)
--- NOTE | 2020-08-23 11:16 | P.PN ---
Subjective Progress Note Date: 08/23/20 CHIEF COMPLAINT: Abdominal pain HISTORY OF PRESENT ILLNESS: Patient is being followed for her colitis and perirectal mass noted on CAT scan. She reports improvement in her abdominal pain. She's had no further episodes of diarrhea or vomiting. Patient is declining to have a colonoscopy completed. She is tolerating regular diet. Afebrile. WBC 9.3 potassium 3.5 PHYSICAL EXAM: VITAL SIGNS: Reviewed. GENERAL: Well-developed in no acute distress. HEENT: No sclera icterus. Extraocular movements grossly intact. Moist buccal mucosa. Head is atraumatic, normocephalic. ABDOMEN: Soft. Nondistended. Minimal tenderness with palpation of the left side of the abdomen. Less tender than yesterday NEUROLOGIC: Alert and oriented. Cranial nerves II through XII grossly intact. ASSESSMENT: 1. Abdominal pain 2. Colitis of the distal left colon and proximal sigmoid colon is improving 3. Perirectal mass 4. Hypokalemia improved with supplement PLAN: -Continue regular diet -Patient has refused colonoscopy -Continue supportive care -Continue antibiotics -Patient is stable for discharge from surgical standpoint -Patient to follow-up with Dr. lopes in 1 week Physician Aircraft Mechanic note has been reviewed by physician. Signing provider agrees with the documented findings, assessment, and plan of care. Objective - Vital Signs Vital signs: Vital Signs Temp 98.7 F 08/23/20 07:29 Pulse 67 08/23/20 07:29 Resp 18 08/23/20 07:29 BP 126/58 08/23/20 07:29 Pulse Ox 96 08/23/20 07:29 Intake & Output 08/22/20 08/23/20 08/23/20 18:59 06:59 18:59 Intake Total 400 240 Output Total 0 Balance 400 240 Intake: Oral 200 240 Other 200 Output: Urine 0 Other: Voiding Method Toilet # Voids 2 1 - Labs CBC & Chem 7: 08/23/20 05:24 08/23/20 05:24 Labs: Abnormal Lab Results - Last 24 Hours (Table) 08/23/20 08/23/20 Range/Units 05:24 05:24 RBC 3.71 L (3.80-5.40) m/uL BUN 6.0 L (9.0-27.0) mg/dL BUN/Creatinine Ratio 8.57 L (12.00-20.00) Ratio Calcium 8.3 L (8.7-10.3) mg/dL Microbiology - Last 24 Hours (Table) 08/21/20 12:19 Blood Culture - Preliminary Blood No Growth after 24 hours
--- NOTE | 2020-08-23 11:18 | P.DS ---
Providers Date of admission: 08/21/20 11:45 Expected date of discharge: 08/23/20 Attending physician: Robert Cruz MD Consults: 08/21/20 11:47 Consult Physician Stat Consulting Provider: Jim Huang Consult Reason/Comments: Colitis Do you want consulting provider notified?: Yes Primary care physician: Sherry [facility] Hospital Course: Final Diagnoses: (1) Intestinal mass, perirectal heterogenesis, concerning for malignancy. Declined scope. Current Visit: Yes Status: Acute Code(s): K63.89 - OTHER SPECIFIED DISEASES OF INTESTINE SNOMED Code(s): 49590217 (2) Hematochezia Current Visit: Yes Status: Acute Code(s): K92.1 - MELENA SNOMED Code(s): 868442396 (3) Acute Infectious colitis, improving Current Visit: Yes Status: Acute Code(s): A09 - INFECTIOUS GASTROENTERITIS AND COLITIS, UNSPECIFIED SNOMED Code(s): 26158610 (4) Essential hypertension Current Visit: Yes Status: Acute Code(s): I10 - ESSENTIAL (PRIMARY) HYPERTENSION SNOMED Code(s): 88017913 (5) hypokalemia Hospital course:Alize Gray is a 75 yo F with PMH of CVA, valve prolapse, cholecystectomy who presented to the ED with generalized abdominal pain, vomiting and diarrhea x2 days. Patient reports having multiple loose watery brown stools and has felt more weak. She denies any previous history of diverticulitis. On presentation vitals stable, WBC 19k, CT abd/pelvis showed [id number] uncomplicated acute left-sided sigmoid colitis in addition to abnormal perirectal/perianal 3.0 cm heterogenous solid mass worrisome for malignancy. Abnormal Exophtic 2.3 cm hyperdense lesion upper pole right kidney could reflect proteinaceous cyst but favor solid mass or neoplasm. Pt denies any previous history of colonoscopy. Evaluated by surgery, recommending colonoscopy. Patient refused colonoscopy. Symptoms subsided, diet advanced tolerated diet with no nausea vomiting. Positive formed bowel movements. Denies abdominal pain. Discussed further scanning outpatient, PET scan-to be discussed at follow-up visit with PCP. Significant clinical improvement. Patient will be discharged home today in a stable condition with guarded prognosis. The impression and plan of care has been dictated as directed. : I performed a history and examination of this patient, discussed the same with the dictator. I agree with the dictator's note ,documented as a scribe. Any additional findings or plans will be noted. Patient Condition at Discharge: Stable Plan - Discharge Summary New Discharge Prescriptions: New Ciprofloxacin HCl [Cipro] 500 mg PO BID 5 Days #10 tab metroNIDAZOLE [Flagyl] 500 mg PO TID 5 Days #15 tab Famotidine [Pepcid] 20 mg PO BID #60 tablet Continue Ergocalciferol [Vitamin D2 (DRISDOL)] 50,000 unit PO TH No Action carvediloL [Coreg] 6.25 mg PO BID amLODIPine [Norvasc] 10 mg PO DAILY Pravastatin Sodium [Pravachol] 80 mg PO DAILY Clopidogrel Bisulfate [Plavix] 75 mg PO DAILY Aspirin EC [Ecotrin Low Dose] 81 mg PO DAILY Potassium Chloride [Klor-Con 10] 10 meq PO BID Furosemide [Lasix] 20 mg PO DAILY Discharge Medication List Aspirin EC [Ecotrin Low Dose] 81 mg PO DAILY 08/21/20 [History] Clopidogrel Bisulfate [Plavix] 75 mg PO DAILY 08/21/20 [History] Ergocalciferol [Vitamin D2 (DRISDOL)] 50,000 unit PO TH 08/21/20 [History] Furosemide [Lasix] 20 mg PO DAILY 08/21/20 [History] Potassium Chloride [Klor-Con 10] 10 meq PO BID 08/21/20 [History] Pravastatin Sodium [Pravachol] 80 mg PO DAILY 08/21/20 [History] amLODIPine [Norvasc] 10 mg PO DAILY 08/21/20 [History] carvediloL [Coreg] 6.25 mg PO BID 08/21/20 [History] Ciprofloxacin HCl [Cipro] 500 mg PO BID 5 Days #10 tab 08/23/20 [Rx] Famotidine [Pepcid] 20 mg PO BID #60 tablet 08/23/20 [Rx] metroNIDAZOLE [Flagyl] 500 mg PO TID 5 Days #15 tab 08/23/20 [Rx] Follow up Appointment(s)/Referral(s): Robert Cruz MD [STAFF PHYSICIAN] - 1 Week Patient Instructions/Handouts: Infectious Colitis (GEN) Activity/Diet/Wound Care/Special Instructions: Magnesium level pending.Flagyl/Cipro dosing as recommended per surgery. Outpatient PET scan to be further discussed at follow-up visit with PCP.
[2020-08-23 14:39] VITALS: BP 121/66; PULSE 62; TEMP 98.4
[2020-08-24] MEDS ORDERED: ERGOCALCIFEROL 50,000 UNIT CAP PO SCH (09:00)
== END 2020-08-23 16:07 | disposition home or self-care (01) | DRG 375 ==
LOC: EC 09:37 → 5NMEDONC 11:45
PROVIDERS: ADMIT Family Medicine; ATTEND Family Medicine
DX: C20 Malignant neoplasm of rectum (principal); K92.1 Melena; A09 Infectious gastroenteritis and colitis, unspecified; E78.5 Hyperlipidemia, unspecified; I10 Essential (primary) hypertension; E87.6 Hypokalemia; I34.1 Nonrheumatic mitral (valve) prolapse; N28.1 Cyst of kidney, acquired; Z88.2 Allergy status to sulfonamides; Z90.710 Acquired absence of both cervix and uterus; Z86.73 Personal history of transient ischemic attack (TIA), and cerebral infarction without residual deficits; Z79.899 Other long term (current) drug therapy; Z79.82 Long term (current) use of aspirin; Z79.02 Long term (current) use of antithrombotics/antiplatelets; Z90.49 Acquired absence of other specified parts of digestive tract
CPT/HCPCS: 36415; 70450; 74177; 80048; 80053; 81001; 83735; 84484; 85025; 85610; 85730; 87040; 93005; 96361; 96365; 96375; 99285

== ENCOUNTER 2020-09-09 04:16 | Emergency (ER) | payer MEDICARE ==
[2020-09-09] MEDS ORDERED: SODIUM CHLORIDE 0.9% 1,000 ML IV STA (04:24)
[2020-09-09 04:33] VITALS: RESP 18; TEMP 98.7
--- NOTE | 2020-09-09 04:44 | ED ---
Abdominal Pain HPI - General Chief Complaint: Abdominal Pain Stated Complaint: Abd Pain Time Seen by Provider: 09/09/20 04:21 Source: patient, EMS, RN notes reviewed, old records reviewed Mode of arrival: EMS - History of Present Illness Initial Comments: This is a 75-year-old female DF for evaluation patient presents today for evaluation regards to abdominal pain. Patient is recent diagnosis of colon cancer colitis. Patient is refusing any further treatment. Persistent nausea vomiting and some decreased responsiveness tonight. Patient himself feels very nauseous weak did not take medications today secondary to weakness and nausea, has not been feeling well for about a day. MD Complaint: abdominal pain -: days(s) Location: diffuse Radiation: none Migration to: no migration Severity: moderate Severity scale (1-10): 5 Quality: stabbing, aching Consistency: constant Improves With: nothing Worsens With: eating Context: recent surgery/procedure Associated Symptoms: nausea, vomiting Treatments Prior to Arrival: prescription analgesics - Related Data Home Medications Medication Instructions Recorded Confirmed Aspirin EC [Ecotrin Low Dose] 81 mg PO DAILY 08/21/20 08/21/20 Clopidogrel Bisulfate [Plavix] 75 mg PO DAILY 08/21/20 08/21/20 Ergocalciferol [Vitamin D2 50,000 unit PO TH 08/21/20 08/21/20 (DRISDOL)] Furosemide [Lasix] 20 mg PO DAILY 08/21/20 08/21/20 Potassium Chloride [Klor-Con 10] 10 meq PO BID 08/21/20 08/21/20 Pravastatin Sodium [Pravachol] 80 mg PO DAILY 08/21/20 08/21/20 amLODIPine [Norvasc] 10 mg PO DAILY 08/21/20 08/21/20 carvediloL [Coreg] 6.25 mg PO BID 08/21/20 08/21/20 Previous Rx's Medication Instructions Recorded Ciprofloxacin HCl [Cipro] 500 mg PO BID 5 Days #10 tab 08/23/20 Famotidine [Pepcid] 20 mg PO BID #60 tablet 08/23/20 metroNIDAZOLE [Flagyl] 500 mg PO TID 5 Days #15 tab 08/23/20 Allergies Allergy/AdvReac Type Severity Reaction Status Date / Time Sulfa (Sulfonamide Allergy Anaphylaxis Verified 08/21/20 12:08 Antibiotics) Review of Systems ROS Statement: Those systems with pertinent positive or pertinent negative responses have been documented in the HPI. ROS Other: All systems not noted in ROS Statement are negative. Past Medical History Past Medical History: CVA/TIA, Hyperlipidemia, Hypertension, Mitral Valve Prolapse (MVP) Additional Past Medical History / Comment(s): IBS, Colon CA History of Any Multi-Drug Resistant Organisms: None Reported Past Surgical History: Cholecystectomy, Hysterectomy, Orthopedic Surgery Past Psychological History: No Psychological Hx Reported Smoking Status: Never smoker Past Alcohol Use History: None Reported Past Drug Use History: None Reported General Exam General appearance: alert, in no apparent distress Head exam: Present: atraumatic, normocephalic, normal inspection Eye exam: Present: normal appearance, PERRL, EOMI. Absent: scleral icterus, conjunctival injection, periorbital swelling ENT exam: Present: normal exam, mucous membranes moist Neck exam: Present: normal inspection. Absent: tenderness, meningismus, lymphadenopathy Respiratory exam: Present: normal lung sounds bilaterally. Absent: respiratory distress, wheezes, rales, rhonchi, stridor Cardiovascular Exam: Present: regular rate, normal rhythm, normal heart sounds. Absent: systolic murmur, diastolic murmur, rubs, gallop, clicks GI/Abdominal exam: Present: soft, normal bowel sounds. Absent: distended, tenderness, guarding, rebound, rigid Extremities exam: Present: normal inspection, full ROM, normal capillary refill. Absent: tenderness, pedal edema, joint swelling, calf tenderness Back exam: Present: normal inspection Neurological exam: Present: alert, oriented X3, CN II-XII intact Psychiatric exam: Present: normal affect, normal mood Skin exam: Present: warm, dry, intact, normal color. Absent: rash Course Vital Signs 09/09/20 09/09/20 09/09/20 04:29 04:59 05:45 Temperature 98.7 F Pulse Rate 97 92 85 Respiratory 18 18 18 Rate Blood Pressure 147/100 147/97 147/93 O2 Sat by Pulse 98 96 97 Oximetry - Reevaluation(s) Reevaluation #1: 09/09/20 05:18 medical record is reviewed Reevaluation #2: 09/09/20 05:19 persistent vomiting in ED Reevaluation #3: 09/09/20 06:12 Patient family informed results, family was very emotional during initial conversation as they do feel like her mortality is eminent. Little bit of reassurance, the feel better, questions are answered Medical Decision Making - Medical Decision Making 75 female DF for evaluation abdominal pain. Positive nausea vomiting. Persistent colitis and inflammatory colitis. Patient does have again rectal mass which they do normal. Patient family feels good enough for discharge home - Lab Data Result diagrams: 09/09/20 04:33 09/09/20 04:33 Lab Results 09/09/20 09/09/20 09/09/20 Range/Units 04:33 04:33 04:33 WBC 12.5 H (3.8-10.6) k/uL RBC 4.61 (3.80-5.40) m/uL Hgb 13.9 (11.4-16.0) gm/dL Hct 43.0 (34.0-46.0) % MCV 93.3 (80.0-100.0) fL MCH 30.2 (25.0-35.0) pg MCHC 32.4 (31.0-37.0) g/dL RDW 12.6 (11.5-15.5) % Plt Count 397 (150-450) k/uL MPV 8.1 Neutrophils % 81 % Lymphocytes % 13 % Monocytes % 4 % Eosinophils % 0 % Basophils % 0 % Neutrophils # 10.2 H (1.3-7.7) k/uL Lymphocytes # 1.6 (1.0-4.8) k/uL Monocytes # 0.5 (0-1.0) k/uL Eosinophils # 0.0 (0-0.7) k/uL Basophils # 0.1 (0-0.2) k/uL Sodium 139 (137-145) mmol/L Potassium 3.7 (3.5-5.1) mmol/L Chloride 104 (98-107) mmol/L Carbon Dioxide 26 (22-30) mmol/L Anion Gap 9 mmol/L BUN 35 H (7-17) mg/dL Creatinine 0.62 (0.52-1.04) mg/dL Est GFR (CKD-EPI)AfAm >90 (>60 ml/min/1.73 sqM) Est GFR (CKD-EPI)NonAf 90 (>60 ml/min/1.73 sqM) Glucose 148 H (74-99) mg/dL Plasma Lactic Acid Pepe 1.5 (0.7-2.0) mmol/L Calcium 9.2 (8.4-10.2) mg/dL Total Bilirubin 1.2 (0.2-1.3) mg/dL AST 25 (14-36) U/L ALT 13 (4-34) U/L Alkaline Phosphatase 103 (38-126) U/L Creatine Kinase <20 L (30-135) U/L Total Protein 6.5 (6.3-8.2) g/dL Albumin 3.4 L (3.5-5.0) g/dL Amylase 37 (30-110) U/L Lipase 33 (23-300) U/L - EKG Data -: EKG Interpreted by Me (EKG shows normal sinus rhythm 84 MO 226 QRS 86 QTc 485) - Radiology Data Radiology results: report reviewed (X-ray KUB negative for acute disease), image reviewed Disposition Clinical Impression: Intestinal mass, Abdominal pain Disposition: HOME SELF-CARE Condition: Good Instructions (If sedation given, give patient instructions): Abdominal Pain ( ED) Is patient prescribed a controlled substance at d/c from ED?: No Referrals: Sherry Young DO [Primary Care Provider] - 1-2 days
[2020-09-09 04:45] LABS: Basophils # (A) 0.1 k/uL (0-0.2); Basophils % (A) 0 %; Eosinophils % (A) 0 %; HGB 13.9 gm/dL (11.4-16.0); Lymphocytes # (A) 1.6 k/uL (1.0-4.8); Lymphocytes % (A) 13 %; MCH 30.2 pg (25.0-35.0); MCHC 32.4 g/dL (31.0-37.0); MCV 93.3 fL (80.0-100.0); Mean Platelet Volume 8.1; Monocytes # (A) 0.5 k/uL (0-1.0); Monocytes % (A) 4 %; Neutrophils # (A) 10.2 k/uL (1.3-7.7); Neutrophils % (A) 81 %; Platelet Count 397 k/uL (150-450); RBC 4.61 m/uL (3.80-5.40); RDW 12.6 % (11.5-15.5); WBC 12.5 k/uL (3.8-10.6)
[2020-09-09 04:54] LABS: ALT 13 U/L (4-34); AST 25 U/L (14-36); African American GFR (CKD) >90 (>60 ml/min/1.73 sqM); Albumin 3.4 g/dL (3.5-5.0); Alkaline Phosphatase 103 U/L (38-126); Amylase 37 U/L (30-110); Anion Gap 9 mmol/L; Blood Urea Nitrogen 35 mg/dL (7-17); Calcium 9.2 mg/dL (8.4-10.2); Carbon Dioxide 26 mmol/L (22-30); Chloride 104 mmol/L (98-107); Creatine Kinase <20 U/L (30-135); Glucose 148 mg/dL (74-99); Lipase 33 U/L (23-300); Non-African American GFR(CKD) 90 (>60 ml/min/1.73 sqM); Potassium 3.7 mmol/L (3.5-5.1); Sodium 139 mmol/L (137-145); Total Bilirubin 1.2 mg/dL (0.2-1.3); Total Protein 6.5 g/dL (6.3-8.2)
[2020-09-09] MEDS ORDERED: ONDANSETRON 4 MG/2 ML VIAL IVP STA (05:06)
[2020-09-09] MEDS ORDERED: LORazepam 2 MG/ML INJ IV STA (05:11)
--- NOTE | 2020-09-09 05:16 | XR ---
EXAM: XR Abdomen, 2 Views CLINICAL HISTORY: abdominal pain TECHNIQUE: Frontal supine views of the abdomen/pelvis. COMPARISON: 02/06/2014. FINDINGS: Lower thorax: Mild cardiomegaly, suboptimally evaluate on this study. Gastrointestinal tract: Probable wall thickening of small bowel loops raising concern for infectious versus inflammatory enteritis in the correct clinical setting. No dilation. Organs: Status post cholecystectomy. Bones/joints: Unremarkable. IMPRESSION: 1. Mild cardiomegaly, suboptimally evaluate on this study. 2. Probable wall thickening of small bowel loops raising concern for infectious versus inflammatory enteritis in the correct clinical setting. CT of the abdomen/pelvis with oral and IV contrast may be obtained for further evaluation, if clinically indicated.
[2020-09-09 06:15] VITALS: BP 123/73; PULSE 89
== END 2020-09-09 06:45 | disposition home or self-care (01) ==
LOC: EC 04:16
DX: K52.9 Noninfective gastroenteritis and colitis, unspecified (principal); K63.89 Other specified diseases of intestine; I10 Essential (primary) hypertension; E78.5 Hyperlipidemia, unspecified; Z79.82 Long term (current) use of aspirin; Z79.02 Long term (current) use of antithrombotics/antiplatelets; Z79.899 Other long term (current) drug therapy; Z88.2 Allergy status to sulfonamides; Z86.73 Personal history of transient ischemic attack (TIA), and cerebral infarction without residual deficits; Z85.038 Personal history of other malignant neoplasm of large intestine; Z90.49 Acquired absence of other specified parts of digestive tract; Z90.710 Acquired absence of both cervix and uterus
CPT/HCPCS: 93005; 80053; 82150; 82550; 83605; 83690; 85025; 74018; 99285; 96374; 96375; 96361 ×2; J2060; J2405

== ENCOUNTER → 2022-11-29 | Outpatient (CLI) | payer MEDICARE ==
[2022-11-29 08:39] LABS: African American GFR (CKD) >90 (>60 ml/min/1.73 sqM); Blood Urea Nitrogen 13 mg/dL (7-17); Non-African American GFR(CKD) 83 (>60 ml/min/1.73 sqM)
--- NOTE | 2022-11-29 10:15 | CT ---
EXAMINATION TYPE: CT abdomen pelvis w con DATE OF EXAM: 11/29/2022 COMPARISON: 08/21/2020 INDICATION: abdominal mass ,f/u no pain DLP: 816 mGycm, Automated exposure control for dose reduction was used. CONTRAST: 100 mL of Isovue 300. Study performed with Oral Contrast TECHNIQUE: Axial images were obtained from above the diaphragm to the pubic rami in the axial plane a t 5 mm thick sections. Reconstructed images are reviewed on the computer in the coronal plane. FINDINGS: Limited CT sections are obtained the lung bases. The lung bases are clear. Some mild infiltrate or atelectasis along the left lower lobe adjacent to the diaphragm may be present. CT ABDOMEN: Liver: Normal Spleen: Normal Pancreas: Normal Adrenal glands: The adrenal glands are normal. Gallbladder: Surgically absent Kidneys: There is a 2.7 x 1.9 x 2.7 cm mass at the superior pole right kidney. Previous measurement 2 .1 x 2.3 x 2.2 cm. No hydronephrosis is present. Tiny cortical renal cysts mainly present on food counter attendant ior lateral left mid kidney. Delayed images were obtained through the kidneys, mass remains present with a washout type enhancement pattern with the adjacent normal kidney. Aorta: Vascular calcification is within the aorta. Inferior vena cava: Normal. CT PELVIS: Loops of bowel within the abdomen and pelvis are normal. There are loops of bowel which are incom pletely distended or lack oral contrast limiting their evaluation. Appendix: Not identified. No dilated tubular structure or inflammatory change evident. Urinary bladder: Normal. Genitourinary structures: Uterus and ovaries are not identified. Osseous structures: No suspicious lytic or sclerotic lesions. Sacroiliac joint degenerative change an d vacuum phenomenon is present. IMPRESSIONS: 1. Enlarging superior pole right renal mass. Workup for neoplasm such as renal cell carcinoma recomm ended. Consider MRI with contrast for additional characterization. A Yellow level critical message alert has been initiated for Sherry Young DO via the [employer] Critical Results System on 11/29/2022 10:12 AM. This message alert has been sent to [facility] via the preferences provided by the clinician for the receipt of Radiology Critical Findings . Message ID [id number].
== END | disposition home or self-care (01) ==
LOC: RADCTMAIN 08:04
PROVIDERS: ATTEND Family Medicine
DX: N28.89 Other specified disorders of kidney and ureter (principal); R19.09 Other intra-abdominal and pelvic swelling, mass and lump
CPT/HCPCS: 82565; 84520; 74177; 36415; Q9967